=== PATIENT | female | born 1980 | race American Indian/Alaskan Native ===

== ENCOUNTER 2017-04-19 12:39 | Outpatient (CLI) | payer BC ==
--- NOTE | 2017-04-19 14:42 | XRay Report ---
Bilateral knees, 4 views of each: Knee pain. Standing images of the right knee demonstrates normal alignment and good preservation of the joint spaces and articular surfaces. The bones are well-mineralized. No swelling and no effusion. Standing images of the left knee demonstrates a mild valgus angulation of the knee joint although the joint spaces are well preserved. Minimal periarticular spurring is noted involving the medial compartment. The articular surfaces are smooth. The bones are well-mineralized. No effusion and no swelling. Impressions: Minimal degenerative spurring of the medial left joint compartment. Mild valgus angulation. Unremarkable right knee.
== END 2017-04-19 12:40 | disposition home or self-care (01) ==
LOC: SPVIMAG 12:39
DX: M25.862 Other specified joint disorders, left knee (principal); M21.852 Other specified acquired deformities of left thigh; M25.561 Pain in right knee